=== PATIENT | male | born 1960 | race Caucasian/White ===

== ENCOUNTER 2017-02-09 03:24 | Emergency (ER) | payer OTHER ==
[~2017-02-09 03:24] MED LIST: ADVAIR 2501 DISK W/D; ADVAIR 25028 BLISTER INH; ADVAIR 50028 BLISTE1 INH; ALBUTEROL17 GM INH; AUGMENTIN; BYSTOLIC PO; FLONASE16 G3; LASIX20 M1 PO; PHENERGAN25 MG PO; PREDNISONE; PREDNISONE10 MG PO; PREDNISONE20 M1 PO; SINGULAIR; SPIRIVA18 MCG; SYNTHROID; SYNTHROID100 MCG PO; SYNTHROID175 MC1 PO; VITAMIN D 22000 UNIT PO
[2017-02-09] MEDS ORDERED: VITAMIN D31000 UNI3 PO (03:37)
[2017-02-09] MEDS ORDERED: NORVASC5 M2 PO (03:38)
[2017-02-09 03:54] LABS: BASO % 0.2 % (0-2); EOS % 4.6 % (0-7); EOSINOPHIL ABSOLUTE COUNT 0.3 tho/cmm (0.0-0.7); HCT-HEMATOCRIT 44.7 % (36.0-53.5); IMMATURE GRANULOCYTES ABSOLUTE 0.02 tho/cmm (0-0.03); IMMATURE GRANULOCYTES PERCENT 0.3 % (0-0.3); LYMPH % 27.8 % (20-45); LYMPH ABSOLUTE COUNT 1.6 tho/cmm (0.8-4.5); MCH (MEAN CORPUSCULAR HGB) 29.5 pg (28.0-32.0); MCHC MEAN CORPUSCULAR HGB CONC 33.6 % (32.0-36.0); MEAN PLATELET VOLUME 11.3 cmc (9.4-12.4); MONO % 11.5 % (0-12); MONOCYTE ABSOLUTE COUNT 0.7 tho/cmm (0.0-1.2); NEUTROPHIL ABSOLUTE COUNT 3.2 tho/cmm (1.6-8.0); NEUTROPHIL-AUTOMATED 3.2 tho/cmm (1.6-8.0); NEUTROPHILS % 55.6 % (40-80); PLATELET COUNT 186 tho/cmm (150-450); RED BLOOD COUNT 5.08 mil/cmm (4.40-5.70); WHITE BLOOD COUNT 5.8 tho/cmm (4.0-10.0)
[2017-02-09 04:12] LABS: ALBUMIN 3.6 g/dl (3.5-5.0); ALKALINE PHOSPHATASE 83 U/L (33-138); ALT/SGPT 55 U/L (12-78); ANION GAP 12 mmol/L (0-20); AST/SGOT 26 U/L (10-40); BILIRUBIN,TOTAL 0.8 mg/dl (0.0-1.5); BLOOD UREA NITROGEN 27 mg/dl (6-24); CALCIUM 8.6 mg/dl (8.5-10.5); CARBON DIOXIDE-VENOUS 25 mmol/L (22-32); CHLORIDE 107 mmol/l (96-110); CREATININE 1.22 mg/dl (0.60-1.30); GLUCOSE 108 mg/dL (70-110); SODIUM 140 mmol/L (135-145); eGFR VALUE FOR BLACK 76 mL/Min
[2017-06-01] MEDS ORDERED: DRAMAMINE LESS25 M1 PO (07:25)
== END 2017-02-09 04:28 ==
LOC: EDMED 03:24
PROVIDERS: Emergency Medicine Emergency Medical Services
DX: R09.1 Pleurisy (principal); I10 Essential (primary) hypertension; J44.9 Chronic obstructive pulmonary disease, unspecified; E07.9 Disorder of thyroid, unspecified; G47.33 Obstructive sleep apnea (adult) (pediatric); Z90.89 Acquired absence of other organs; Z98.890 Other specified postprocedural states; Z79.890 Hormone replacement therapy; Z79.51 Long term (current) use of inhaled steroids; Z79.899 Other long term (current) drug therapy
CPT/HCPCS: J1885